=== PATIENT | female | born 1945 | race Caucasian/White ===

== ENCOUNTER 2025-09-13 14:02 | Outpatient (CLI) | payer MEDICARE | END 2025-09-13 14:03 | disposition home or self-care (01) | LOC: CSHMAMMO 14:02 | PROVIDERS: ATTEND Internal Medicine | DX: N64.89 Other specified disorders of breast (principal); N63.15 Unspecified lump in the right breast, overlapping quadrants | CPT/HCPCS: 76642; 77065; G0279 ==